=== PATIENT | female | born 1970 | race Caucasian/White ===

== ENCOUNTER 2016-09-30 05:39 | Outpatient (CLI) | payer MEDICAID ==
[~2016-09-30] VITALS: Ht 165.1 cm; Wt 56.2 kg
[~2016-09-30 05:39] MED LIST: ACT35T PO; ACTONEL; ALPR1TAB2 PO; ANDRODERM PATCH; CALC1TAB PO; CYCL10TA45; FOLI1TAB6 PO; LD5PT; NAPR250T34; PRILOSEC OTC; TRM50TRX; [UNRECOGNIZED DRUG - CODE] TD
[2016-09-30] MEDS ORDERED: RANI150T15 PO (10:21)
== END 2016-09-30 10:31 ==
LOC: PREOP 05:39
PROVIDERS: ATTEND Obstetrics & Gynecology
DX: Z01.818 Encounter for other preprocedural examination (principal); N94.819 Vulvodynia, unspecified

== ENCOUNTER 2016-12-27 05:35 | Outpatient (CLI) | payer MEDICAID ==
[~2016-12-27] VITALS: Ht 165.1 cm; Wt 57.2 kg
[~2016-12-27 05:35] MED LIST changes: +RANI150T15 PO
== END 2016-12-27 12:53 ==
LOC: PREOP 05:35
PROVIDERS: ATTEND Obstetrics & Gynecology
DX: Z01.818 Encounter for other preprocedural examination (principal); N94.819 Vulvodynia, unspecified

== ENCOUNTER 2017-02-07 05:47 | Outpatient (CLI) | payer MEDICAID ==
[~2017-02-07] VITALS: Ht 165.1 cm; Wt 57.2 kg
== END 2017-02-07 14:50 ==
LOC: PREOP 05:47
PROVIDERS: ATTEND Obstetrics & Gynecology
DX: Z01.818 Encounter for other preprocedural examination (principal); N94.819 Vulvodynia, unspecified